=== PATIENT | male | born 1990 | race Caucasian/White ===

== ENCOUNTER 2018-07-19 23:11 | Emergency (ER) | payer MEDICAID ==
[2018-07-19 23:31] LABS: ADD MAN DIFF? NO
[2018-07-19] MEDS: ONDANSETRON 4 MG INJ IV (23:31)
[2018-07-19] MEDS: DIPHTH/TET/ACEL PERTUSS (ADULT) 0.5 ML VIAL IM* (23:31)
[2018-07-19] MEDS: SOD CHLORIDE 0.9% 1,000 ML IV (23:31)
[2018-07-19] MEDS: CEFAZOLIN 2 GM/50 ML (PMX) 50 ML IVPB (23:34)
[2018-07-19 23:37] LABS: BASOPHIL # 0.1 10^3/ul (0.0-0.1); BASOPHILS % 0.7 % (0.0-2.0); EOSINOPHILS # 0.3 10^3/ul (0.0-0.5); HEMATOCRIT 44.7 % (42.0-52.0); HEMOGLOBIN 15.7 g/dl (14.0-18.0); LYMPHOCYTES # 4.9 10^3/ul (0.8-2.9); LYMPHOCYTES % 50.2 % (15.0-51.0); MEAN CORPUSCULAR HEMOGLOBIN 33.2 pg (29.0-33.0); MEAN CORPUSCULAR HGB CONC 35.1 g/dl (32.0-37.0); MEAN CORPUSCULAR VOLUME 94.5 fl (82.0-101.0); MEAN PLATELET VOLUME 9.2 fl (7.4-10.4); MONOCYTES % 9.8 % (0.0-11.0); NEUTROPHIL # 3.5 10^3/ul (1.6-7.5); PLATELET COUNT 334 10^3/UL (140-415); RED BLOOD COUNT 4.73 10^6/ul (4.70-6.10); RED CELL DISTRIBUTION WIDTH 12.1 % (11.5-14.5)
[2018-07-19 23:37] LABS: WHITE BLOOD COUNT 9.8 10^3/ul (4.8-10.8)
[2018-07-19 23:50] LABS: ANION GAP 14 (5-13); BLOOD UREA NITROGEN 12 mg/dl (7-20); CALCIUM 9.4 mg/dl (8.4-10.2); CARBON DIOXIDE 22 mmol/L (21-31); CHLORIDE 106 mmol/L (97-110); CREATININE 1.24 mg/dl (0.61-1.24); Estimated GFR > 60 mL/min (>60); GLUCOSE 102 mg/dl (70-220); POTASSIUM 3.6 mmol/L (3.5-5.1); SODIUM 142 mmol/L (135-144)
[2018-07-19] MEDS: SOD CHLORIDE 0.9% 100 ML (23:51)
[2018-07-19] MEDS: IOHEXOL 300MG/ML 150 ML BTL (23:51)
[2018-07-19 23:57] LABS: INR 0.81; PROTIME 11.3 Sec (11.9-14.9); PT RATIO 0.9
[2018-07-19 23:58] LABS: PARTIAL THROMBOPLASTIN TIME 25.3 Sec (23.0-35.0)
[2018-07-20] MEDS: LIDOCAINE 1% (MDV) 20 ML INJ SC (00:54)
[2018-07-20 01:16] LABS: AMPHETAMINE/METHAMPHETAMINE NEGATIVE (NEGATIVE); BARBITURATES NEGATIVE (NEGATIVE); BENZODIAZEPINES NEGATIVE (NEGATIVE); CANNABINOIDS POSITIVE (NEGATIVE)
[2018-07-20 01:31] LABS: COCAINE POSITIVE (NEGATIVE); OPIATES NEGATIVE (NEGATIVE)
== END 2018-07-20 01:43 | disposition home or self-care (01) ==
LOC: E/R 23:11
DX: S31.139A Puncture wound of abdominal wall without foreign body, unspecified quadrant without penetration into peritoneal cavity, initial encounter (principal); F10.129 Alcohol abuse with intoxication, unspecified; R10.9 Unspecified abdominal pain; X99.1XXA Assault by knife, initial encounter; Z23 Encounter for immunization
CPT/HCPCS: 12002; 36415; 71045; 74177; 80048; 80307; 85025; 85610; 85730; 90471; 90715; 93005; 96374; 96375; 99285-25